=== PATIENT | male | born 1955 | race Two or more races ===

== ENCOUNTER 2023-12-10 13:53 | Outpatient (CLI) | payer OTHER | END 2023-12-10 13:56 | disposition home or self-care (01) | LOC: RAD 13:53 | PROVIDERS: ATTEND Internal Medicine | DX: J44.1 Chronic obstructive pulmonary disease with (acute) exacerbation (principal) ==

== ENCOUNTER 2024-01-14 13:45 | Outpatient (CLI) | payer OTHER | END 2024-01-14 13:51 | disposition home or self-care (01) | LOC: RAD 13:45 | PROVIDERS: ATTEND Orthopaedic Surgery | DX: M41.02 Infantile idiopathic scoliosis, cervical region (principal) ==

== ENCOUNTER 2024-01-22 12:31 | Outpatient (CLI) | payer OTHER | END 2024-01-22 13:17 | disposition home or self-care (01) | LOC: TOM 12:31 | PROVIDERS: ATTEND Internal Medicine | DX: L02.11 Cutaneous abscess of neck (principal) ==

== ENCOUNTER → 2024-04-30 08:04 | Outpatient (CLI) | payer OTHER ==
[2024-04-30 09:41] LABS: HEMOGLOBIN 13.5 g/dL (13-16.00); MEAN CORPUSCULAR HEMOGLOBIN 30.1 pg (27.00-32.0); MEAN CORPUSCULAR HGB CONC 34.6 g/dl (32.0-36.0); PLATELET COUNT 233 K/uL (150-450); RED BLOOD COUNT 4.48 M/uL (4.00-6.00); RED CELL DISTRIBUTION WIDTH 13.7 % (11.5-14.5)
[2024-04-30 10:55] LABS: ALBUMIN 3.9 gm/dL (3.4-5.0); BILIRUBIN TOTAL 0.41 mg/dL (0.3-1.2); CALCIUM 8.8 mg/dL (8.5-10.1); CHOL HDL RATIO 5.4 (0-5.0); CREATININE SERUM 1.04 mg/dL (0.70-1.30); FREE TRIODOTIRONINE 3.12 pg/ml (2.18-3.98); GFR 71.45; GLOBULINA 3.4 G/DL (2.4-3.5); POTASSIUM 4.58 mEq/L (3.5-5.1); PROSTATIC SPECIFIC ANTIGEN 0.781 NG/ML (0.010-4.00); T4 FREE 0.91 NG/ML (0.76-1.46); TOTAL PROTEIN 7.3 gm/dL (6.4-8.2); TSH 3.2 uIU/mL (0.358-3.74)
[2024-04-30 13:19] LABS: ob NEGATIVE (NEGATIVE)
== END | disposition home or self-care (01) ==
LOC: LAB 08:04
PROVIDERS: ATTEND Internal Medicine
DX: E03.9 Hypothyroidism, unspecified (principal); E55.9 Vitamin D deficiency, unspecified; Z12.11 Encounter for screening for malignant neoplasm of colon; E78.9 Disorder of lipoprotein metabolism, unspecified; R73.9 Hyperglycemia, unspecified; Z12.5 Encounter for screening for malignant neoplasm of prostate

== ENCOUNTER 2024-04-30 09:02 | Outpatient (CLI) | payer OTHER | END 2024-04-30 09:26 | disposition home or self-care (01) | LOC: RAD 09:02 | PROVIDERS: ATTEND Orthopaedic Surgery | DX: M41.02 Infantile idiopathic scoliosis, cervical region (principal) ==

== ENCOUNTER 2024-05-20 10:47 | Outpatient (CLI) | payer OTHER | END 2024-05-20 10:50 | disposition home or self-care (01) | LOC: RAD 10:47 | PROVIDERS: ATTEND Orthopaedic Surgery | DX: M54.50 Low back pain, unspecified (principal) | CPT/HCPCS: 72148 ==

== ENCOUNTER 2024-07-15 12:03 | Outpatient (CLI) | payer OTHER | END 2024-07-15 12:08 | disposition home or self-care (01) | LOC: RAD 12:03 | PROVIDERS: ATTEND Physical Medicine & Rehabilitation | DX: M16.11 Unilateral primary osteoarthritis, right hip (principal); M16.12 Unilateral primary osteoarthritis, left hip; M25.551 Pain in right hip; M25.552 Pain in left hip ==

== ENCOUNTER 2024-07-27 13:52 | Outpatient (CLI) | payer OTHER | END 2024-07-27 14:10 | disposition home or self-care (01) | LOC: TOM 13:52 | PROVIDERS: ATTEND Internal Medicine Pulmonary Disease | DX: R06.02 Shortness of breath (principal); Z87.891 Personal history of nicotine dependence ==

== ENCOUNTER 2024-08-06 09:18 | Outpatient (CLI) | payer OTHER | END 2024-08-06 09:34 | disposition home or self-care (01) | LOC: RAD 09:18 | PROVIDERS: ATTEND Internal Medicine Interventional Cardiology | DX: I25.118 Atherosclerotic heart disease of native coronary artery with other forms of angina pectoris (principal) ==

== ENCOUNTER 2024-09-21 09:38 | Outpatient (CLI) | payer OTHER | END 2024-09-21 09:39 | disposition home or self-care (01) | LOC: RAD 09:38 | DX: I25.700 Atherosclerosis of coronary artery bypass graft(s), unspecified, with unstable angina pectoris (principal); Z95.1 Presence of aortocoronary bypass graft ==